=== PATIENT | female | born 1950 | race Caucasian/White ===

== ENCOUNTER → 2018-05-02 10:32 | Outpatient (CLI) | payer MEDICARE, OTHER | END | disposition home or self-care (01) | LOC: D.CT 10:32 | DX: J98.59 Other diseases of mediastinum, not elsewhere classified (principal) ==

== ENCOUNTER 2018-09-01 17:59 | Outpatient (CLI) | payer MEDICARE, OTHER | END 2018-09-01 18:02 | disposition home or self-care (01) | LOC: D.MAMMO 17:59 | PROVIDERS: ATTEND Family Medicine | DX: Z12.31 Encounter for screening mammogram for malignant neoplasm of breast (principal) ==

== ENCOUNTER 2019-10-04 12:54 | Emergency (ER) | payer MEDICARE, OTHER ==
[~2019-10-04] VITALS: Ht 160 cm; Wt 57.3 kg
[2019-10-04 13:28] VITALS: Ht 160 cm; Wt 57.3 kg
[2019-10-04 13:30] LABS: BASOPHILS 0.8 % (0-2); EOSINOPHILS 3.2 % (0-7); HEMATOCRIT 44.9 % (36.0-48.0); HEMOGLOBIN 14.3 g/dL (12-16); IMMATURE GRANULOCYTES 0.1 % (0-5); LYMPHOCYTES 20.4 % (15-50); MCHC 31.8 g/dL (31.0-37.0); MCV 94.1 fL (80.0-100.0); MEAN PLATELET VOLUME 9.2 fL (7.4-10.4); MONOCYTES 6.9 % (2-11); NEUTROPHILS 68.6 % (40-80); PLATELET COUNT 263 10x3/uL (130-400); RBC 4.77 10x6/uL (4.00-5.40); WBC 8.6 10x3/uL (4.8-10.8)
[2019-10-04 13:45] LABS: CALC OSMOLALITY 280 mosm/kg (275-300); CALCIUM 9.5 mg/dL (8.5-10.1); CARBON DIOXIDE 25.5 mmol/L (21.0-32.0); CHLORIDE - SERUM 103 mmol/L (98-107); CREATININE - SERUM 0.8 mg/dL (0.6-1.3); GLUCOSE 125 mg/dL (74-106); POTASSIUM - SERUM 3.7 mmol/L (3.5-5.1); SODIUM 140 mmol/L (136-145); UREA NITROGEN 14 mg/dL (7-18); eGFR NON AFRICAN AMERICAN 75 mL/min (90-120)
[2019-10-04 13:49] LABS: ALKALINE PHOSPHATASE 68 U/L (30-120); ALT (SGPT) 34 U/L (10-68); AMYLASE - SERUM 59 U/L (25-115); BILIRUBIN - TOTAL 0.67 mg/dL (0.2-1.3); LIPASE 91 U/L (73-393); PROTEIN - SERUM 7.9 g/dL (6.4-8.2); TROPONIN-I < 0.017 ng/mL (0.000-0.060)
[2019-10-04 16:25] LABS: BILIRUBIN NEGATIVE (NEGATIVE); GLUCOSE NEGATIVE (NEGATIVE); KETONE MODERATE mg/dL (NEGATIVE); NITRITE NEGATIVE (NEGATIVE); UROBILINOGEN NORMAL (NORMAL)
[2019-10-04] MEDS ORDERED: ZOFRAN ODT4 MG/UDTAB PO (16:35)
[2019-10-04 16:55] VITALS: BP 129/71
== END 2019-10-04 17:00 | disposition home or self-care (01) ==
LOC: D.ER 12:54
PROVIDERS: Family Medicine
DX: A05.9 Bacterial foodborne intoxication, unspecified (principal); F41.8 Other specified anxiety disorders; R42 Dizziness and giddiness; R11.2 Nausea with vomiting, unspecified